=== PATIENT | male | born 1990 | race African-American/Black ===

== ENCOUNTER 2017-12-11 16:53 | Inpatient (IN) ==
[2017-12-11] MEDS ORDERED: Etomidate Inj 20 MG/10 ML Ampul IV.PUSH ONE (16:56)
[2017-12-11] MEDS ORDERED: Propofol 1000 mg/100 ml Inj 1,000 MG/100 ML BOTTLE ONE (16:56)
[2017-12-11] MEDS ORDERED: Succinylcholine Inj 200 MG/10 ML Vial ONE (16:56)
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
[2017-12-11 17:20] LABS: Baso # (Auto) 0.1 th/mm3 (0.0-0.2); Baso % (Auto) 0.6 % (0.0-2.0); Eos # (Auto) 0.9 th/mm3 (0.0-0.4); Eos % (Auto) 5.4 % (0.0-4.0); Hematocrit 45.4 % (39.0-51.0); Hemoglobin 14.8 gm/dL (13.0-17.0); Lymph # (Auto) 6.5 th/mm3 (1.0-4.8); Lymph % (Auto) 37.5 % (9.0-44.0); Mean Corpuscular HGB Conc 32.7 % (32.0-36.0); Mean Corpuscular Hemoglobin 29.8 pg (27.0-34.0); Mean Corpuscular Volume 91.1 fL (80.0-100.0); Mean Platelet Volume 8.7 fL (7.0-11.0); Mono # (Auto) 1.6 th/mm3 (0.0-0.9); Mono % (Auto) 9.2 % (0.0-8.0); Neut # (Auto) 8.2 th/mm3 (1.8-7.7); Neut % (Auto) 47.3 % (16.0-70.0); Platelet Count 221 th/mm3 (150-450); Red Blood Count 4.98 mil/mm3 (4.50-5.90); Red Cell Distribution Width 14.2 % (11.6-17.2); White Blood Count 17.3 th/mm3 (4.0-11.0)
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
[2017-12-11 17:27] LABS: Activated Partial Thrombo Time 22.5 sec (24.3-30.1); INR 1.2 Ratio
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
[2017-12-11 17:37] LABS: Anion Gap 21 meq/L (5-15); Blood Urea Nitrogen 11 mg/dL (7-18); Calcium 9.7 mg/dL (8.5-10.1); Carbon Dioxide 16.9 meq/L (21.0-32.0); Chloride 111 meq/L (98-107); Glomerular Filtration Rate 40 mL/min (>89); Glucose,Random 116 mg/dL (74-106); Potassium 3.3 meq/L (3.5-5.1); Sodium 149 meq/L (136-145)
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
[2017-12-11] MEDS ORDERED: Morphine Sulfate Inj 8 MG/ML Vial IV.PUSH PRN (17:44)
[2017-12-11] MEDS ORDERED: Midazolam Inj 5 MG/ML 1 ML Vial ONE (17:54)
[2017-12-11] MEDS ORDERED: fentaNYL Citrate Inj 100 MCG/2 ML Ampul ONE (17:54)
[2017-12-11 17:55] LABS: Eosinophils 10 % (0-4); Lymphocytes 40 % (9-44); Monocytes 6 % (0-8)
[2017-12-11 17:56] LABS: Platelet Estimate Normal (Normal); Platelet Morphology Normal (Normal)
[2017-12-11] MEDS ORDERED: Potassium Chlor 20 mEq Premix 20 MEQ/100 ML PIGGYBACK IV.SIG PRN ×2 (18:08→21:06)
[2017-12-11] MEDS ORDERED: Calcium Gluconate Inj 1 GM in Sodium Chlor 0.9% Inj 100 ML IV.SIG PRN (18:08)
[2017-12-11] MEDS ORDERED: Bisacodyl 10 MG Supp RECTAL PRN (18:08)
[2017-12-11] MEDS ORDERED: Labetalol HCl Inj 100 MG/20 ML Vial IV.PUSH PRN (18:08)
[2017-12-11] MEDS ORDERED: Magnesium Sulfate Inj 2 GM in Sodium Chlor 0.9% Inj 96 ML IV.SIG PRN ×2 (18:08→21:06)
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
[2017-12-11] MEDS ORDERED: Midazolam Inj 5 MG/ML 1 ML Vial IV.PUSH ONE (18:30)
[2017-12-11] MEDS ORDERED: levETIRAcetam 1000mg/100mL Inj 100 ML IV.SIG ONE (18:30)
[2017-12-11] MEDS ORDERED: fentaNYL Citrate Inj 100 MCG/2 ML Ampul IV.PUSH ONE (18:30)
[2017-12-11] MEDS ORDERED: Propofol Inj 500 MG/50 ML Vial ONE (18:44)
[2017-12-11] MEDS ORDERED: Diphtheria/Tetanus/Pertussis Vaccine Inj 0.5 ML Syringe IM ONE (19:00)
[2017-12-11] MEDS: Sod Chloride 0.9% Inj 1,000 ML IV.CONT SCH (19:49)
[2017-12-11 20:08] LABS: Bilirubin,Urine Negative (Negative); Clarity,Urine Clear (Clear); Color,Urine Yellow (Yellw/Straw); Glucose,Urine (UA) Negative (Negative); Leukocyte Esterase,Urine Negative (Negative); Mucus,Urine Few /lpf (Occasional); Nitrite,Urine Negative (Negative); Specific Gravity,Urine 1.017 (1.002-1.035)
[2017-12-11 20:10] LABS: ABG Base Excess -0.8 mmol/L (-2-2); ABG PCO2 43 mmHg (38-42); ABG PO2 195 mmHg (61-120)
[2017-12-11 20:11] LABS: Amphetamine Screen,Urine Neg (Neg); Barbiturate Screen,Urine Neg (Neg); Cannabinoid Screen,Urine Pos (Neg); Cocaine Screen,Urine Neg (Neg)
[2017-12-11 20:12] LABS: Opiate Screen,Urine Neg (Neg)
[2017-12-11] MEDS: fentaNYL 10 mcg/mL Premix Drip 2,500 MCG/250 ML BAG IV.SIG PRN (20:15)
[2017-12-11] MEDS: Propofol 1000 mg/100 ml Inj 1,000 MG/100 ML BOTTLE IV.CONT PRN (20:16)
[2017-12-11] MEDS ORDERED: Docusate Sodium 100 MG Capsule PO SCH (21:00)
[2017-12-11] MEDS ORDERED: Potassium Phosphate 500 MG Soluble Tablet PO PRN ×2 (21:06)
[2017-12-11] MEDS ORDERED: Magnesium Sulfate Inj 4 GM in Sodium Chlor 0.9% Inj 92 ML IV.SIG PRN (21:06)
[2017-12-11] MEDS ORDERED: Magnesium Oxide 400 MG Tablet PO PRN (21:06)
[2017-12-11] MEDS ORDERED: Potassium Phosphate Inj 30 MMOL in Sodium Chlor 0.9% Inj 250 ML IV.SIG PRN (21:06)
[2017-12-11] MEDS ORDERED: Potassium Chlor 40 mEq Premix 40 MEQ/100 ML PIGGYBACK IV.SIG PRN ×2 (21:06)
[2017-12-11] MEDS ORDERED: Sodium Phosphate Inj 30 MMOL in Sodium Chlor 0.9% Inj 250 ML IV.SIG PRN (21:06)
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
[2017-12-11 21:51] LABS: Magnesium 2.3 mg/dL (1.5-2.5); Phosphorus 3.9 mg/dL (2.5-4.9)
[2017-12-11] MEDS: Sodium Chloride 0.9% 2 ML Flush BID IV.FLUSH SCH (23:10)
[2017-12-12] MEDS: Pantoprazole Inj 40 MG Vial IV.PUSH SCH ×2 (00:15→17:42)
[2017-12-12] MEDS: Potassium Chloride 25 MEQ Effervescent Tablet PO PRN (00:17)
[2017-12-12] MEDS: Potassium Chlor 20 mEq Premix 20 MEQ/100 ML PIGGYBACK IV.SIG PRN ×2 (00:17→02:27)
[2017-12-12] MEDS: Propofol 1000 mg/100 ml Inj 1,000 MG/100 ML BOTTLE IV.CONT PRN ×3 (00:18→07:47)
[2017-12-12] MEDS: Oral Hygiene Kit OROPHARYNG SCH ×4 (00:27→17:06)
[2017-12-12] MEDS ORDERED: Chlorhexidine Gluconate 2% 1 Pack (2 Cloths) TOPICAL PRN (04:00)
[2017-12-12 05:05] LABS: Baso # (Auto) 0.1 th/mm3 (0.0-0.2); Baso % (Auto) 0.4 % (0.0-2.0); Eos # (Auto) 0.2 th/mm3 (0.0-0.4); Eos % (Auto) 1.1 % (0.0-4.0); Hematocrit 37.2 % (39.0-51.0); Hemoglobin 12.6 gm/dL (13.0-17.0); Lymph # (Auto) 1.9 th/mm3 (1.0-4.8); Lymph % (Auto) 11.6 % (9.0-44.0); Mean Corpuscular HGB Conc 33.9 % (32.0-36.0); Mean Corpuscular Hemoglobin 29.8 pg (27.0-34.0); Mean Corpuscular Volume 88.1 fL (80.0-100.0); Mean Platelet Volume 8.9 fL (7.0-11.0); Mono # (Auto) 1.6 th/mm3 (0.0-0.9); Mono % (Auto) 9.7 % (0.0-8.0); Neut # (Auto) 12.4 th/mm3 (1.8-7.7); Neut % (Auto) 77.2 % (16.0-70.0); Platelet Count 166 th/mm3 (150-450); Red Blood Count 4.23 mil/mm3 (4.50-5.90); Red Cell Distribution Width 13.9 % (11.6-17.2)
[2017-12-12 05:22] LABS: Anion Gap 8 meq/L (5-15); Blood Urea Nitrogen 10 mg/dL (7-18); Calcium 8.5 mg/dL (8.5-10.1); Carbon Dioxide 23.1 meq/L (21.0-32.0); Chloride 113 meq/L (98-107); Glomerular Filtration Rate Greater Than 89 mL/min (>89); Glucose,Random 79 mg/dL (74-106); Potassium 3.6 meq/L (3.5-5.1); Sodium 144 meq/L (136-145)
[2017-12-12 05:34] LABS: ABG Base Excess -1.1 mmol/L (-2-2); ABG PCO2 31 mmHg (38-42); ABG PO2 174 mmHg (61-120)
[2017-12-12] MEDS: Chlorhexidine Gluconate 2% 1 Pack (2 Cloths) TOPICAL SCH (05:59)
[2017-12-12] MEDS: Sod Chloride 0.9% Inj 1,000 ML IV.CONT SCH ×2 (06:13→14:30)
[2017-12-12] MEDS: Chlorhexidine 0.12% Oral Kit 15 ML UDC OROPHARYNG SCH (07:46)
[2017-12-12] MEDS: fentaNYL 10 mcg/mL Premix Drip 2,500 MCG/250 ML BAG IV.SIG PRN (07:47)
--- NOTE | 2017-12-12 07:51 | XR ---
EXAM DATE: 12/12/2017 12:01 AM EDT AGE/SEX: 27 years / Male INDICATIONS: Respiratory distress. CLINICAL DATA: This is the patient's subsequent encounter. Patient reports that signs and symptoms h ave been present for 2 days and indicates a pain score of Nonresponsive. MEDICAL/SURGICAL HISTORY: Non-responsive. Non-responsive. COMPARISON: [facility], CHEST 1V SINGLE AP, 12/11/2017. . FINDINGS: Endotracheal tube tip at the inferior margin of the clavicles. Lungs are clear. Heart and mediastinal contours are normal. NG tube coiled in the stomach. CONCLUSION: Clear lungs. Electronically signed by: Javier Mejía MD 12/12/2017 7:49 AM EDT
[2017-12-12] MEDS: Sodium Chloride 0.9% 2 ML Flush BID IV.FLUSH SCH (08:03)
[2017-12-12] MEDS: Senna/Docusate Sodium 8.6/50 MG Tablet PO SCH (08:03)
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
[2017-12-13 03:54] LABS: Anion Gap 13 meq/L (5-15); Blood Urea Nitrogen 8 mg/dL (7-18); Calcium 8.7 mg/dL (8.5-10.1); Carbon Dioxide 23.6 meq/L (21.0-32.0); Chloride 107 meq/L (98-107); Glomerular Filtration Rate Greater Than 89 mL/min (>89); Glucose,Random 57 mg/dL (74-106); Potassium 3.4 meq/L (3.5-5.1); Sodium 144 meq/L (136-145)
[2017-12-13 03:56] VITALS: RESP 21
[2017-12-13 03:59] LABS: Baso # (Auto) 0.1 th/mm3 (0.0-0.2); Baso % (Auto) 0.3 % (0.0-2.0); Eos # (Auto) 0.3 th/mm3 (0.0-0.4); Eos % (Auto) 1.4 % (0.0-4.0); Hematocrit 38.4 % (39.0-51.0); Hemoglobin 12.9 gm/dL (13.0-17.0); Lymph % (Auto) 10.9 % (9.0-44.0); Mean Corpuscular HGB Conc 33.7 % (32.0-36.0); Mean Corpuscular Hemoglobin 29.7 pg (27.0-34.0); Mean Corpuscular Volume 87.9 fL (80.0-100.0); Mean Platelet Volume 9.2 fL (7.0-11.0); Mono # (Auto) 1.5 th/mm3 (0.0-0.9); Mono % (Auto) 8.5 % (0.0-8.0); Neut # (Auto) 14.3 th/mm3 (1.8-7.7); Neut % (Auto) 78.9 % (16.0-70.0); Platelet Count 164 th/mm3 (150-450); Red Blood Count 4.36 mil/mm3 (4.50-5.90); White Blood Count 18.1 th/mm3 (4.0-11.0)
[2017-12-13 05:53] VITALS: O2SAT 99
[2017-12-13] MEDS: Oral Hygiene Kit OROPHARYNG SCH (06:41)
[2017-12-13] MEDS: Senna/Docusate Sodium 8.6/50 MG Tablet PO SCH ×2 (06:42→08:46)
[2017-12-13] MEDS: Chlorhexidine Gluconate 2% 1 Pack (2 Cloths) TOPICAL SCH (06:42)
[2017-12-13] MEDS: Sodium Chloride 0.9% 2 ML Flush BID IV.FLUSH SCH ×2 (06:45→08:46)
[2017-12-13] MEDS: Chlorhexidine 0.12% Oral Kit 15 ML UDC OROPHARYNG SCH ×2 (06:45→08:46)
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
[2017-12-13] MEDS: Potassium Chloride 25 MEQ Effervescent Tablet PO PRN (08:46)
[2017-12-13 13:00] VITALS: BP 139/78; PULSE 80; TEMP 98
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
== END 2017-12-13 13:37 | disposition home or self-care (01) ==
LOC: NEPI 16:53 → EDBD 17:30 → MERGE 17:30 → NEDA 17:30 → N03 17:42
PROVIDERS: ADMIT Surgery; ATTEND Surgery